=== PATIENT | male | born 1935 | race American Indian/Alaskan Native ===

== ENCOUNTER 2016-11-22 13:38 | Emergency (ER) | payer MEDICARE ==
[2016-11-22 14:14] LABS: Eosinophils % (Auto) 3.1 % (0.0-4.3); Hemoglobin 13.3 gm/dl (11.8-15.2); Mean Corpuscular HGB Conc 33 % (32-34); Mean Corpuscular Hemoglobin 31 pg (28-32); Mean Corpuscular Volume 96 fl (84-94); Platelet Count 174 K/mm3 (140-440); Red Blood Count 4.28 M/mm3 (3.65-5.03); Red Cell Distribution Width 16.3 % (13.2-15.2); White Blood Count 6.8 K/mm3 (4.5-11.0)
[2016-11-22 14:30] LABS: BUN/Creatinine Ratio 5.06; Calcium 8.9 mg/dL (8.4-10.2); Chloride 100.5 mmol/L (98-107); Potassium 4.3 mmol/L (3.6-5.0)
--- NOTE | 2016-11-22 17:02 | Emergency Department Report ---
ED General Adult HPI - General Chief complaint: Recheck/Abnormal Lab/Rx Stated complaint: NEEDS DIALYSIS Time Seen by Provider: 11/22/16 16:13 Source: family Mode of arrival: Ambulatory Limitations: Physical Limitation - History of Present Illness Initial comments: 81 YO male with PMHX of ESRD, HTN presenting to ED for HD. Pt states he gets hemodialysis on Friday//Friday. He states he is from out [place], [place] and he is visiting for a family reunion. He made arrangements with the [facility] dialysis in [facility] to have hemodialysis performed today. When he arrived at the location, he was told he was missing essential paperwork and that he could not be dialyzed today in the clinic. Patient was sent to ED. Patient currently has no symptoms. Patient denies: Fever/ chills, chest pain, shortness of breath, orthopnea, lower extremity edema. Patient states he is scheduled to go back to his place of residence on Friday. Severity scale (0 -10): 0 - Related Data Allergies Allergy/AdvReac Type Severity Reaction Status Date / Time No Known Allergies Allergy Unverified 11/22/16 13:44 ED Review of Systems ROS: Stated complaint: NEEDS DIALYSIS Other details as noted in HPI Constitutional: denies: chills, fever Eyes: denies: eye pain, eye discharge, vision change ENT: denies: ear pain, throat pain Respiratory: denies: cough, shortness of breath, wheezing Cardiovascular: denies: chest pain, palpitations Endocrine: no symptoms reported Gastrointestinal: denies: abdominal pain, nausea, diarrhea Genitourinary: denies: urgency, dysuria Musculoskeletal: denies: back pain, joint swelling, arthralgia Skin: denies: rash, lesions Neurological: denies: headache, weakness, paresthesias Psychiatric: denies: anxiety, depression Hematological/Lymphatic: denies: easy bleeding, easy bruising ED Past Medical Hx - Past Medical History Hx Hypertension: Yes Hx Diabetes: Yes Hx Renal Disease: Yes ( - - FRI) Hx of Cancer: Yes (PROSTATE) Hx Arthritis: Yes Hx Asthma: Yes Additional medical history: CHRONIC BACK / HIP PAIN. BLIND IN LEFT EYE. ABDOMINAL ANEURYSM - Surgical History Additional Surgical History: LEFT EYE SURGERY. BACK SURGERY X 2. FISTULA RIGHT UPPER ARM. TONSILLECTOMY - Social History Smoking Status: Former Smoker Substance Use Type: None ED Physical Exam - General Limitations: Physical Limitation General appearance: alert, in no apparent distress - Head Head exam: Present: atraumatic, normocephalic - Eye Eye exam: Present: normal appearance - ENT ENT exam: Present: mucous membranes moist - Neck Neck exam: Present: normal inspection - Respiratory Respiratory exam: Present: normal lung sounds bilaterally. Absent: respiratory distress - Cardiovascular Cardiovascular Exam: Present: regular rate, normal rhythm. Absent: systolic murmur, diastolic murmur, rubs, gallop - GI/Abdominal GI/Abdominal exam: Present: soft, normal bowel sounds - Rectal Rectal exam: Present: deferred - Extremities Exam Extremities exam: Present: normal inspection - Back Exam Back exam: Present: normal inspection - Neurological Exam Neurological exam: Present: alert, oriented X3 - Psychiatric Psychiatric exam: Present: normal affect, normal mood - Skin Skin exam: Present: warm, dry, intact, normal color. Absent: rash ED Course Vital Signs 11/22/16 11/22/16 11/22/16 13:44 16:24 16:26 Temperature 98.4 F 98.1 F Pulse Rate 96 H 82 Respiratory 20 18 18 Rate Blood Pressure 176/90 Blood Pressure 159/75 [Left] O2 Sat by Pulse 97 95 95 Oximetry - Reevaluation(s) Reevaluation #1: 11/22/16 17:17 Patient resting comfortably, he has no complaints ED Medical Decision Making - Lab Data Result diagrams: 11/22/16 14:02 11/22/16 14:02 - EKG Data -: EKG Interpreted by Me EKG shows normal: sinus rhythm (85), axis (negative), intervals (445), QRS complexes (96) Rate: normal - EKG Data When compared to previous EKG there are: previous EKG unavailable Interpretation: no acute changes (sinus with first degree block ) - Radiology Data Radiology results: image reviewed interpreted by me: No acute findings. No evidence of pulmonary edema. No infiltrates appreciated. - Medical Decision Making 81-year-old male with past medical history of end-stage renal disease presenting to ED for HD. 1) ESRD There is no indication for medical admission and urgent hemodialysis. Patient currently has no symptoms. Patient states he was sent here by the Center. Patient is asymptmoatic he agrees he is stable to dc home and have HD in 72 hours. Pt verbalizes understanding that if his condition changed he should seek immediate medical attention Critical Care Time: No Critical care attestation.: If time is entered above; I have spent that time in minutes in the direct care of this critically ill patient, excluding procedure time. ED Disposition Clinical Impression: End stage renal disease Disposition: TO HOME OR SELFCARE Is pt being admited?: No Does the pt Need Aspirin: No Condition: Stable Referrals: PRIMARY CARE, [Primary Care Provider] - 3-5 Days LISA MCDONALD MD [Staff Physician] - 2-3 Days KODI WYMAN MD [Staff Physician] - 2-3 Days
[2016-11-22 17:57] VITALS: BP 160/77
--- NOTE | 2016-11-23 10:56 | XRay Report ---
AP CHEST :11/22/16 16:13:00 CLINICAL: Cough. COMPARISON:None. FINDINGS: Normal heart and pulmonary vasculature. The lungs are normally expanded and clear. The bones and soft tissues are normal. IMPRESSION: Normal chest.
== END 2016-11-22 17:40 | disposition home or self-care (01) ==
LOC: ED 13:38
DX: E11.22 Type 2 diabetes mellitus with diabetic chronic kidney disease (principal); I12.0 Hypertensive chronic kidney disease with stage 5 chronic kidney disease or end stage renal disease; N18.6 End stage renal disease; Z99.2 Dependence on renal dialysis; C61 Malignant neoplasm of prostate; M19.90 Unspecified osteoarthritis, unspecified site; J45.909 Unspecified asthma, uncomplicated; G89.29 Other chronic pain; Z87.891 Personal history of nicotine dependence
CPT/HCPCS: 36415; 71010; 80048; 85025; 93005; 93010